=== PATIENT | male | born 1965 ===

== ENCOUNTER 2021-07-17 08:31 | Emergency (ER) | payer OTHER ==
[2021-07-17 08:36] VITALS: BP 148/89
[2021-07-17] MEDS ORDERED: ACETAMINOPHEN 325 MG TAB PO ONE (09:09)
[2021-07-17] MEDS ORDERED: IBUPROFEN 400 MG TAB PO ONE (09:09)
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
--- NOTE | 2021-07-18 18:30 | Electrocardiograph Report ---
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
== END 2021-07-17 11:31 | disposition home or self-care (01) ==
LOC: ED 08:31
DX: R07.89 Other chest pain (principal); V49.49XA Driver injured in collision with other motor vehicles in traffic accident, initial encounter; Y93.89 Activity, other specified; Y92.89 Other specified places as the place of occurrence of the external cause; Y99.8 Other external cause status
CPT/HCPCS: 71046; 93005; 99284